=== PATIENT | female | born 1950 | race Two or more races ===

== ENCOUNTER 2020-08-23 07:24 | Outpatient (CLI) | payer OTHER | END 2020-08-23 07:35 | disposition home or self-care (01) | LOC: NUCLEAR 07:24 | PROVIDERS: ATTEND Internal Medicine Cardiovascular Disease | DX: I11.9 Hypertensive heart disease without heart failure (principal); E11.9 Type 2 diabetes mellitus without complications; I20.8 Other forms of angina pectoris | CPT/HCPCS: 78452; 93017; A9500; J0153 ==